=== PATIENT | male | born 1955 | race Caucasian/White ===

== ENCOUNTER 2023-11-22 13:48 | Outpatient (CLI) | payer MEDICARE, SELFPAY ==
--- NOTE | 2023-11-22 | ECG_ITS ---
Test Date: 2023-11-22 14:21:51 Measurements Intervals [place] Rate: 69 P: 54 FL: 168 QRS: 29 QRSD: 75 T: 32 QT: 347 QTc: 373 Interpretive Statements SINUS RHYTHM NORMAL ECG No previous ECG available for comparison Electronically Signed On 11-22-2023 14:54:28 CDT by Audi Lange D.O.
== END 2023-11-22 13:49 | disposition home or self-care (01) ==
LOC: ANHLAB 13:58 → ANHCARD 13:58
DX: Z01.818 Encounter for other preprocedural examination (principal)
CPT/HCPCS: 93005